=== PATIENT | female | born 1980 | race Caucasian/White ===

== ENCOUNTER → 2016-12-07 | Outpatient (CLI) | payer BC ==
[~2016-12-07] MED LIST: CYNI1000 INJ; OXYC-57 PO; PRENTAB26 PO
== END | disposition home or self-care (01) ==
LOC: C.LAB1850 10:31
PROVIDERS: ATTEND Obstetrics & Gynecology Reproductive Endocrinology
DX: O09.00 Supervision of pregnancy with history of infertility, unspecified trimester (principal)

== ENCOUNTER → 2016-12-12 | Outpatient (CLI) | payer BC | END | disposition home or self-care (01) | LOC: C.LAB 07:54 | PROVIDERS: ATTEND Specialist | DX: Z31.41 Encounter for fertility testing (principal) ==

== ENCOUNTER → 2017-01-27 | Outpatient (CLI) | payer BC | END | disposition home or self-care (01) | LOC: C.LAB1850 07:02 | PROVIDERS: ATTEND Obstetrics & Gynecology Reproductive Endocrinology | DX: O09.00 Supervision of pregnancy with history of infertility, unspecified trimester (principal) ==

== ENCOUNTER → 2017-01-29 | Outpatient (CLI) | payer BC | END | disposition home or self-care (01) | LOC: C.LAB1850 08:47 | PROVIDERS: ATTEND Obstetrics & Gynecology Reproductive Endocrinology | DX: O09.00 Supervision of pregnancy with history of infertility, unspecified trimester (principal) ==

== ENCOUNTER → 2017-02-01 | Outpatient (CLI) | payer BC | END | disposition home or self-care (01) | LOC: C.LAB1850 09:18 | PROVIDERS: ATTEND Obstetrics & Gynecology Reproductive Endocrinology | DX: O09.00 Supervision of pregnancy with history of infertility, unspecified trimester (principal); Z3A.00 Weeks of gestation of pregnancy not specified ==

== ENCOUNTER → 2017-02-24 | Outpatient (CLI) | payer BC | END | disposition home or self-care (01) | LOC: C.LAB1850 08:52 | PROVIDERS: ATTEND Obstetrics & Gynecology | DX: O02.1 Missed abortion (principal) ==

== ENCOUNTER → 2017-03-08 | Outpatient (CLI) | payer BC | END | disposition home or self-care (01) | LOC: C.LAB1850 09:13 | PROVIDERS: ATTEND Obstetrics & Gynecology Reproductive Endocrinology | DX: Z31.41 Encounter for fertility testing (principal) ==

== ENCOUNTER → 2017-03-15 | Outpatient (CLI) | payer BC | END | disposition home or self-care (01) | LOC: C.LAB 07:10 | PROVIDERS: ATTEND Obstetrics & Gynecology Reproductive Endocrinology | DX: Z31.41 Encounter for fertility testing (principal) ==

== ENCOUNTER → 2017-04-02 | Outpatient (CLI) | payer BC | END | disposition home or self-care (01) | LOC: C.LAB1850 09:15 | PROVIDERS: ATTEND Obstetrics & Gynecology Reproductive Endocrinology | DX: Z11.3 Encounter for screening for infections with a predominantly sexual mode of transmission (principal); Z11.4 Encounter for screening for human immunodeficiency virus [HIV]; Z11.59 Encounter for screening for other viral diseases; O09.00 Supervision of pregnancy with history of infertility, unspecified trimester; Z3A.00 Weeks of gestation of pregnancy not specified ==

== ENCOUNTER → 2017-04-09 | Outpatient (CLI) | payer BC | END | disposition home or self-care (01) | LOC: C.LAB1850 08:59 | PROVIDERS: ATTEND Obstetrics & Gynecology Reproductive Endocrinology | DX: Z31.41 Encounter for fertility testing (principal) ==

== ENCOUNTER → 2017-04-27 | Outpatient (CLI) | payer BC | END | disposition home or self-care (01) | LOC: C.LAB1850 09:03 | PROVIDERS: ATTEND Obstetrics & Gynecology Reproductive Endocrinology | DX: O09.00 Supervision of pregnancy with history of infertility, unspecified trimester (principal) ==

== ENCOUNTER → 2017-06-03 | Outpatient (CLI) | payer OTHER | END | disposition home or self-care (01) | LOC: C.LAB1850 08:47 | PROVIDERS: ATTEND Obstetrics & Gynecology Reproductive Endocrinology | DX: O09.00 Supervision of pregnancy with history of infertility, unspecified trimester (principal) ==

== ENCOUNTER → 2017-06-28 | Outpatient (CLI) | payer OTHER | END | disposition home or self-care (01) | LOC: C.LAB1850 08:36 | PROVIDERS: ATTEND Obstetrics & Gynecology Reproductive Endocrinology | DX: O09.00 Supervision of pregnancy with history of infertility, unspecified trimester (principal) ==

== ENCOUNTER → 2017-07-02 | Outpatient (CLI) | payer OTHER ==
[2017-07-02 10:50] LABS: HEMATOCRIT 40.5 % (37-47); HEMOGLOBIN 14.3 g/dL (12.0-16.0); MEAN CELL VOLUME 88.8 fL (80-100); MEAN CORPUSCULAR HEMOGLOBIN 31.4 pg (25-34); PLATELET COUNT 138 K/uL (130-400); RED CELL DISTRIBUTION WIDTH CV 12.8 % (11.5-14.5); RED CELL DISTRIBUTION WIDTH SD 41.1 fL (36.4-46.3); WHITE BLOOD COUNT 3.99 K/uL (4.8-10.8)
[2017-07-02 10:53] LABS: MEAN CORPUSCULAR HGB CONC 35.3 g/dl (32-36)
[2017-07-02 11:17] LABS: LUTEINIZING HORMONE 7.41 IU/L
[2017-07-02 11:18] LABS: FOLLICLE STIMULAT HORMONE 16.17 IU/L
== END | disposition home or self-care (01) ==
LOC: C.LAB1850 10:16
PROVIDERS: ATTEND Obstetrics & Gynecology Reproductive Endocrinology
DX: Z31.41 Encounter for fertility testing (principal); Z13.0 Encounter for screening for diseases of the blood and blood-forming organs and certain disorders involving the immune mechanism

== ENCOUNTER → 2017-12-23 | Outpatient (CLI) | payer OTHER | END | disposition home or self-care (01) | LOC: C.LAB1850 10:23 | PROVIDERS: ATTEND Obstetrics & Gynecology Reproductive Endocrinology | DX: Z31.41 Encounter for fertility testing (principal) ==

== ENCOUNTER 2018-12-07 07:38 | Inpatient (IN) ==
--- NOTE | 2018-12-07 08:10 | History & Physical Report ---
Date of Service December 07, 2018 Assessment & Plan (1) Supervision of normal IUP (intrauterine ) in multigravida: (2) Encounter for induction of labor: Monitoring vitals, FHT and and labor status No ROM yet Started on pitocin drip to accelerate contractions and ripen cervix Present on Admission?: Yes History of Present Illness Primary Care Provider: . Dating parameters 40w 5d per LMP confirmed on 02/25/2018. Induction today for postdates. No Complications with this . Has been attending OB appointments. Is currently taking a vitamin with iron and zyrtec for allergies. Experiencing contractions. Experiencing Movement. No Fluid loss or Vaginal blood loss since wednesday when pt thought she had a bloody show. Labs - Blood type: A- - Antibody screen: positive for Anti-D dig - H.4 - Hct:36.2 - Wbc:10.15 - Plt: 135 - Rubella:immune - VDRL/RPR: nonreactive - Gonorrhea :neg - Chlamydia: neg - HIV: neg - HbSAg: neg - GBS:neg - Glucose tolerance x 2: neg x2 Allergies Allergy/AdvReac Type Severity Reaction Status Date / Time No Known Drug Allergies Allergy Verified 12/06/18 14:16 Home Medications Home Medications Medication Instructions Recorded Confirmed Type 1 tab PO DAILY 11/28/18 12/07/18 History vitamin,calcium,rxpyphrr-nzah-xayby acid tablet cetirizine [Zyrtec] 10 mg PO DAILY 12/02/18 12/07/18 History Patient History Medical History Anemia pernicious anemia H/O blood coagulation disorder Factor II clotting disorder Habitual aborter Surgical History History of oral surgery S/P LASIK surgery S/P dilatation and curettage D&E x3 Family History Grandfather (Paternal) Cancer Social History Preferred Language: Hebrew Communication Ability: Effective 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 Beliefs That Will Affect Care: None marital status: Current Living Situation: Spouse Other Information That Helps Us Care for You: No Feels Safe at Home: Yes Safety Concerns: Feels Safe At This Time Smoking Status: Never smoker Do You Dip or Chew Tobacco: No ; Hx Alcohol Use: No Hx Substance Use: No Review of Systems no fever, no chills and no fatigue no cough, no dyspnea and no wheezing + edema; no chest pain and no calf pain + cramping; no abdominal pain, no nausea, no vomiting, no constipation and no diarrhea/loose stools no dysuria and no difficulty urinating + back pain Physical Exam Constitutional: well developed and well nourished Respiratory: normal respiratory effort; no respiratory distress, no labored breathing and no cough Auscultation: no diminished lung sounds, no crackles, no rales, no rhonchi and no wheezes Cardiovascular: Rate/Rhythm: regular rate and regular rhythm Extremities: normal capillary refill, + pedal edema and + edema (2+ pitting edema BL to knees); no calf tenderness Gastrointestinal (Abdomen): Inspection/Auscultation: + abdomen distended and normal bowel sounds Percussion/Palpation: abdomen nontender and no guarding Genitourinary: Speculum/Bimanual Exam: + uterus enlarged OB Exam Abdomen: + fundal height Fundus: + firm and + relation to umbilicus (high above umbilicus); not tender Results & Data Vital Signs (Past 12 Hours) Vital Signs Pulse BP 12/07/18 07:55 81 125/70 Monitoring External Monitor Heart Monitor: Moderate Variability Accelerations No Decels Basleine HR 150 Tocodynamometer Contraction Frequency: sporadic, not in synchronous rhythm at this time Supervising Physician Co-Signing Physician Notes Resident Physician Supervision Note: I was present with Dr. [place] during the history and exam. I discussed the case with the resident and agree with the findings and plan as documented in the note. Any exceptions or clarifications are listed here: [None] Documented By: Padmini Franco MD, FACOG
[2018-12-07] MEDS ORDERED: OXYTOCIN 30 UNITS/500 ML BAG IV PRN ×2 (08:11)
[2018-12-07 08:36] LABS: Hematocrit (blood only) 36.2 % (37-47); Hemoglobin 12.4 g/dL (12.0-16.0); Mean Corpuscular Volume 91.6 fL (80-100); Mean Platelet Volume 10.8 fL (7.4-10.4); Platelet Count 135 K/uL (130-400); RDW Coefficient of Variation 13.8 % (11.5-14.5); RDW Standard Deviation 45.4 fL (36.4-46.3); Red Blood Count 3.95 M/uL (4.2-5.4); White Blood Count 10.15 K/uL (4.8-10.8)
[2018-12-07 08:58] LABS: Mean Corpuscular Hgb Conc 34.3 g/dL (32-36)
[2018-12-07] MEDS: LACTATED RINGER'S 1,000 ML IV PRN ×4 (10:17→23:18)
[2018-12-07] MEDS ORDERED: BUPIVACAINE 0.25% 30 ML VIAL ONE (15:40)
[2018-12-07] MEDS ORDERED: ePHEDrine sulfate 50 MG/ML AMP ONE (15:41)
[2018-12-07] MEDS ORDERED: fentaNYL citrate 100 MCG/2 ML VIAL ONE (15:41)
[2018-12-07] MEDS ORDERED: fentaNYL 2MCG/ML ROPIV 1.25MG/ML 100 ML BAG EPI ONE (15:42)
--- NOTE | 2018-12-07 16:43 | Anesthesiology Consultation ---
Date of Service December 07, 2018 Assessment & Plan Chart Review Chart Review: Acceptable Risk for Labor Epidural Consults Requested none History Height/Weight Height: 5 ft 9 in Weight: 92.533 kg Allergies Allergy/AdvReac Type Severity Reaction Status Date / Time No Known Drug Allergies Allergy Verified 12/06/18 14:16 Medications Home Medications Medication Instructions Recorded Confirmed Last Taken 1 tab PO DAILY 11/28/18 12/07/18 12/06/18 19:00 vitamin,calcium,wnczvpti-uvgw-wherg acid tablet cetirizine [Zyrtec] 10 mg PO DAILY 12/02/18 12/07/18 12/06/18 09:00 Active Medications Generic Name Dose Route Start Last Admin Trade Name Freq PRN Reason Stop Dose Admin Lactated Ringer's 1,000 mls @ 125 mls/hr 12/07/18 08:11 12/07/18 14:41 Lr IV 12/09/18 08:10 999 mls/hr .Q8H PRN Infusion L&D Protocol Protocol Oxytocin 30 units in 500 mls @ 5 mls/hr 12/07/18 08:11 12/07/18 12:20 Pitocin IV 12/09/18 08:10 0.3 units/hr .Q24H PRN 5 mls/hr Labor Induction/Augmentation Titration Protocol 0.3 UNITS/HR Past Medical History Medical History Anemia pernicious anemia H/O blood coagulation disorder Factor II clotting disorder Habitual aborter Past Family History Family History Grandfather (Paternal) Cancer Past Surgical History Surgical History History of oral surgery S/P LASIK surgery S/P dilatation and curettage D&E x3 Social History Smoking Status: Never smoker Do You Dip or Chew Tobacco: No Hx Alcohol Use: No Hx Substance Use: No Physical Exam Vital Signs Last Vital Signs Temp 36.9 C 12/07/18 14:10 Pulse 83 12/07/18 16:38 Resp 20 12/07/18 14:10 BP 136/60 12/07/18 16:38 Pulse Ox 96 12/07/18 16:38 Testing Laboratory Results 12/07/18 08:19
[2018-12-07] MEDS ORDERED: ePHEDrine sulfate 50 MG/ML AMP IV PRN (16:46)
[2018-12-07] MEDS ORDERED: NALOXONE HCL 1 MG in SODIUM CHLORIDE 0.9% 1000ML 1,000 ML IV PRN (16:46)
[2018-12-07] MEDS ORDERED: NALOXONE HCL 0.4 MG/1 ML VIAL/CARP IV PRN (16:46)
[2018-12-07] MEDS ORDERED: DiphenhydrAMINE HCL 50 MG/ML VIAL IV PRN (16:46)
[2018-12-07] MEDS ORDERED: NALBUPHINE HCL INJ 10 MG/ML AMP IV PRN (16:46)
[2018-12-07] MEDS ORDERED: Nursing to Pharmacy Communication ONE (22:35)
[2018-12-07] MEDS: fentaNYL 2MCG/ML ROPIV 1.25MG/ML 100 ML BAG EPI PRN (23:19)
[2018-12-08] MEDS: fentaNYL 2MCG/ML ROPIV 1.25MG/ML 100 ML BAG EPI PRN (05:38)
[2018-12-08] MEDS: LACTATED RINGER'S 1,000 ML IV PRN (06:17)
[2018-12-08] MEDS ORDERED: BISACODYL 10 MG SUPP PR PRN (08:14)
[2018-12-08] MEDS ORDERED: HYDROCORTISONE ACETATE 25 MG SUPP PR PRN (08:14)
[2018-12-08] MEDS ORDERED: SUPERCREAM 0.870% 15 GM JAR EXT PRN (08:14)
[2018-12-08] MEDS ORDERED: ACETAMINOPHEN 325 MG TAB PO PRN (08:14)
[2018-12-08] MEDS ORDERED: OXYCODONE/ACETAMINOPHEN 5mg/325mg TAB PO PRN (08:14)
[2018-12-08] MEDS ORDERED: BENZOCAINE 20% AER SPR 82.5 GM CAN EXT PRN (08:14)
[2018-12-08] MEDS ORDERED: OXYTOCIN 30 UNITS/500 ML BAG IV PRN (08:14)
--- NOTE | 2018-12-08 09:36 | Anesthesia Procedure Note ---
Date of Service December 08, 2018 Anesthesia Post Epidural Note Vital Signs Vital Signs: Temp Pulse Resp BP Pulse Ox 36.8 C 90 18 119/59 L 97 12/08/18 06:00 12/08/18 09:30 12/08/18 06:00 12/08/18 09:30 12/08/18 07:43 Pain Intensity Bilateral Abdomen: Pain Intensity: 4 Notes Mental Status: alert / awake / arousable Patient Amnestic to Procedure: No Nausea / Vomiting: adequately controlled Pain: adequately controlled Airway Patency, RR, SpO2: stable & adequate BP & HR: stable & adequate Hydration State: stable & adequate Neuraxial Anesthesia: was administered and sensory block is resolving Anesthetic Complications: no major complications apparent and Pt Satisfied with anesthetic care Epidural: Removed without complications and With tip intact
[2018-12-08] MEDS: IBUPROFEN 600 MG TAB PO PRN ×3 (10:35→19:37)
--- NOTE | 2018-12-08 15:08 | Delivery Summary ---
DATE OF OPERATION: 12/08/2018 The patient is a 38-year-old G1, P0 white female who presented for induction because of post-term . She had a Sanders bulb placed in her cervix and Pitocin was begun. She progressed to full dilation with effective epidural analgesia and delivered a viable female over a small median episiotomy. Mouth and nasopharynx were suctioned on the field. The rest of the infant delivered easily, was placed on the mother's abdomen for further attention and drying. The cord was clamped and cut after 30 seconds. Placenta was then expressed intact with a 3-vessel cord. A second degree perineal laceration was repaired with 3-0 chromic in the usual fashion. Estimated blood loss was 300 mL. bleeding was controlled with dilute Pitocin. I attest to the content of the Intraoperative Record and any orders documented therein. Any exception s are noted below.
[2018-12-08] MEDS: DOCUSATE SODIUM 100 MG CAP PO SCH (19:37)
[2018-12-09] MEDS: IBUPROFEN 600 MG TAB PO PRN ×5 (01:10→20:39)
[2018-12-09 07:53] LABS: Hematocrit (blood only) 31.1 % (37-47); Hemoglobin 10.5 g/dL (12.0-16.0); Mean Corpuscular Hgb Conc 33.8 g/dL (32-36); Mean Corpuscular Volume 92.3 fL (80-100); Mean Platelet Volume 10.6 fL (7.4-10.4); Platelet Count 146 K/uL (130-400); RDW Coefficient of Variation 14.3 % (11.5-14.5); Red Blood Count 3.37 M/uL (4.2-5.4); White Blood Count 14.42 K/uL (4.8-10.8)
[2018-12-09] MEDS: PRENATAL VITAMIN 1 TAB PO SCH (07:54)
[2018-12-09] MEDS: DOCUSATE SODIUM 100 MG CAP PO SCH ×2 (07:55→20:39)
--- NOTE | 2018-12-09 07:55 | Obstetrical Progress Note ---
Date of Service December 09, 2018 Assessment & Plan (1) Vaginal delivery: Doing well. Routinen care. Day #:: 1 Subjective Ambulation: ambulating normally Voiding: no voiding problems Passing Gas:: Yes Diet Tolerance:: regular diet Lochia:: Small Feeding Type:: breast feeding Physical Exam Constitutional WD/WN, vitals as above Cardiovascular Extremities: + edema (trace); no calf tenderness Gastrointestinal (Abdomen) Inspection/Auscultation: abdomen not distended Percussion/Palpation: abdomen soft; abdomen nontender ff/nt at u Psychiatric A+Ox3, euthymic affect Results & Data Vital Signs (Past 12 Hours) Vital Signs Temp Pulse Resp BP Pulse Ox 12/09/18 03:25 36.6 C 79 16 101/62 97 12/08/18 23:15 36.6 C 81 16 109/69 98
[2018-12-09] MEDS ORDERED: DIPHTHERIA/TETANUS/PERTUSSIS 0.5 ML SYR/VIAL IM ONE (09:00)
[2018-12-09] MEDS ORDERED: BISACODYL 5 MG TABEC PO SCH (20:00)
[2018-12-10] MEDS: IBUPROFEN 600 MG TAB PO PRN ×2 (00:55→07:42)
[2018-12-10 07:37] LABS: Hematocrit (blood only) 31.7 % (37-47); Hemoglobin 10.7 g/dL (12.0-16.0)
[2018-12-10] MEDS: PRENATAL VITAMIN 1 TAB PO SCH (07:42)
[2018-12-10] MEDS: DOCUSATE SODIUM 100 MG CAP PO SCH (07:42)
--- NOTE | 2018-12-10 09:04 | Obstetrical Progress Note ---
Date of Service December 10, 2018 Assessment & Plan (1) Vaginal delivery: doing well, ready for d/c home. instructions reviewed. f/u 6 wk pp check. 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 she seems to have low risk condition with no high risk factors. offered lovenox for 2wks vs. nothing(based on her past heme consult and current literature) she opts to not use lovenox. enc to move more (3) Pain in the coccyx: enc to move more. motrin and warm heat and time. may need to see PT or ortho if persists by pp visit. Day #:: 2 Subjective Ambulation: ambulating normally Voiding: no voiding problems Diet Tolerance:: regular diet Lochia:: Small Feeding Type:: breast feeding doing well, denies h/o vte or leg pain or any issues. she has been told in past that she does not need lovenox due to her h/o heterozygous prothrombin gene mutation, she is having tailbone pain and was trying to move more with the walker, has pedal edema Physical Exam Constitutional WD/WN, vitals as above Respiratory normal respiratory effort, lungs clear to auscultation Cardiovascular Rate/Rhythm: regular rate and regular rhythm Gastrointestinal (Abdomen) Inspection/Auscultation: abdomen normal to inspection Percussion/Palpation: abdomen soft fundus firm 1 cm below umbilicus Musculoskeletal nt calves, +2 pedal edema Neurologic grossly normal Psychiatric A+Ox3, euthymic affect Results & Data Vital Signs (Past 12 Hours) Vital Signs Temp Pulse Resp BP 12/10/18 00:10 98.1 F 76 18 108/69
== END 2018-12-10 11:30 | disposition home or self-care (01) | DRG 806 ==
LOC: 4S1 07:38 → 4N 12-08 11:30

== ENCOUNTER 2020-11-13 23:08 | Inpatient (IN) ==
[2020-11-14] MEDS ORDERED: OXYTOCIN 30 UNITS/500 ML BAG IV PRN (00:31)
[2020-11-14] MEDS ORDERED: LACTATED RINGER'S 1,000 ML IV PRN (00:31)
--- NOTE | 2020-11-14 00:33 | Labor Progress Brief Note ---
Date of Service November 14, 2020 Subjective 40yo @ 38w 6d with SROM at home earlier this evening, followed by onset of contractions. Patient was initially un-convinced her water had broken, and elected to stay at home after discussing on the phone with o/c provider at 1845pm, due to a pad test being negative. However by 8pm contractions were starting to fruit picker, and by 2245pm the patient called back to c/o ctx becoming painful and 4-6min apart. She was then advised to come in and be checked. On arrival per RN she was a tight 2cm dilated, thick, posterior, and ROM was uncertain. I asked an AmniSure to be done, which came up positive. At that point we decided to admit the patient and I came out to examine her myself and confirm position as well as cervical dilation. At that point, despite only a short time having passed, patient had already become significantly more painful and she was already 5cm/90/-1 station. Fetus definitely in vertex presentation. Patient undecided at this time whether she wishes an epidural or NCB. Review of Systems All systems reviewed & are unremarkable except as noted in HPI & below Assessment & Plan (1) Elderly multigravida: (2) Normal labor and delivery: (3) Need for rhogam due to Rh negative mother: Physical Exam Constitutional: WD/WN, vitals as above + in distress Eyes: PERRL, conjunctivae normal, anicteric sclerae ENMT: external ear and nose normal, oropharynx normal Neck: supple Respiratory: normal respiratory effort and able to speak in complete sentences; no respiratory distress Cardiovascular: Rate/Rhythm: regular rate and regular rhythm Extremities: + pedal edema Gastrointestinal (Abdomen): Gravid / AGA, nontender Musculoskeletal: no cyanosis or clubbing, extremities motor strength 5/5 Skin: no rashes, warm and dry Neurologic: patellar DTR's 2+ bilat, sensation intact Psychiatric: A+Ox3, euthymic affect Genitourinary: Speculum/Bimanual Exam: no vaginal lesions, no vaginal bleeding and uterus nontender OB Exam Abdomen: + vertex, + estimated weight (7) and + regular contractions (Q3) Manual OB Exam: + cervical dilation 5 cm, + cervical effacement 90%, + station -1 and + amniotic fluid clear OB Exam Monitor Tracing: + external FHT monitor used, + external uterine monitor used and + category I Lymphatic: no cervical or axillary lymphadenopathy Results & Data ([facility]) Vital Signs (Past 12 Hours) Vital Signs Temp Pulse Resp BP 11/13/20 23:29 90 107/61 11/13/20 23:25 97.7 F 90 16 107/61 Coding Level of Care Code None Diagnoses Elderly multigravida O09.529 Normal labor and delivery O80 Need for rhogam due to Rh negative mother Z29.13
[2020-11-14 00:45] LABS: Hematocrit (blood only) 37.9 % (37-47); Hemoglobin 13.1 g/dL (12.0-16.0); Mean Corpuscular Hemoglobin 31.8 pg (25-34); Platelet Count 132 K/uL (130-400); RDW Coefficient of Variation 14.2 % (11.5-14.5); RDW Standard Deviation 47.4 fL (36.4-46.3); Red Blood Count 4.12 M/uL (4.2-5.4); White Blood Count 10.45 K/uL (4.8-10.8)
[2020-11-14 01:20] LABS: Mean Corpuscular Hgb Conc 34.6 g/dL (32-36)
[2020-11-14] MEDS ORDERED: ePHEDrine sulfate 50 MG/ML AMP ONE (01:45)
[2020-11-14] MEDS ORDERED: BUPIVACAINE 0.25% 30 ML VIAL ONE (01:45)
[2020-11-14] MEDS ORDERED: fentaNYL citrate 100 MCG/2 ML VIAL ONE (01:45)
[2020-11-14] MEDS ORDERED: SODIUM CHLORIDE 0.9% INJ 10 ML VIAL ONE (01:45)
[2020-11-14] MEDS ORDERED: fentaNYL 2MCG/ML ROPIVACAINE 1.25MG/ML 100 ML BAG EPI ONE (01:46)
--- NOTE | 2020-11-14 02:35 | Anesthesiology Consultation ---
Date of Service November 14, 2020 Assessment & Plan (1) Encounter for pre-operative examination: Chart Review Chart Review: Acceptable Risk for Surgery and Patient seen in Pre Admission Testing Consults Requested none ASA ASA2 Proposed Anesthesia Anesthesia Type: Labor Epidural Risk / Benefits Reviewed With: PT / POA / Parent / Guardian, Accepts Plan and Informed Consent Obtained History Height/Weight Height: 5 ft 9 in Weight: 95.254 kg Allergies Allergy/AdvReac Type Severity Reaction Status Date / Time No Known Allergies Allergy Verified 11/12/20 12:52 Medications Home Medications Medication Instructions Recorded Confirmed Last Taken vit no.95-ferrous 1 tab PO HS 11/28/19 11/13/20 11/13/20 fumarate 28 mg-folic acid 800 mcg tablet () Active Medications Generic Name Dose Route Start Last Admin Trade Name Freq PRN Reason Stop Dose Admin Lactated Ringer's 1,000 mls @ 125 mls/hr 11/14/20 00:31 11/14/20 01:38 Lr IV 11/16/20 00:30 999 mls/hr .Q8H PRN Administration L&D Protocol Protocol NPO Date Last Intake of Fluids: 11/14/20 Time Last Intake of Fluids: 02:31 Date Last Intake of Solids: 11/13/20 Time Last Intake of Solids: 18:00 Past Medical History Medical History (Updated 11/14/20 @ 00:39 by Malina Malagon MD) Encounter for pre-operative examination H/O blood coagulation disorder Factor II clotting disorder; 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 Migraine hx Miscarriage Need for rhogam due to Rh negative mother 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 Prothrombin deficiency Supervision of elderly multigravida Thickened endometrium Exercise / Class Metabolic Activity II 4-5 Yardwork/Stairs/Walk up hill Negative for chest pain or shortness of breath. Past Family History Family History Grandfather (Paternal) Cancer Past Surgical History Surgical History History of epidural anesthesia Labor epidural: 12/07/18: attempts x1 at L3-L4 History of oral surgery WISDOM TEETH S/P dilatation and curettage D&E x3 S/P LASIK surgery Past Anesthesia History No Hx of Anesthesia Complications History of PONV No Hx of PONV Social History Smoking Status: Never smoker Hx Alcohol Use: Yes Alcohol type: beer alcohol intake frequency: a few times a month Hx Substance Use: No Review of Systems Patient denies history of abnormal bleeding. Patient denies active use of anticoagulants other than low dose aspirin. Pt reports that her "bleeding disorder" was discovered on a genetic test and has never had any symptoms of bleeding abnormalities. Patient denies numbness, tingling or weakness in lower extremities. Physical Exam Vital Signs Last Vital Signs Temp 36.7 C 11/14/20 01:35 Pulse 90 11/13/20 23:29 Resp 18 11/14/20 01:35 BP 107/61 11/13/20 23:29 Constitutional not obese (gravid) ENMT Mouth: no TMJ abnormality and oral opening not small Thyromental Distance: > or= 3.5 Finger Breadths Mallampati Class: II Neck normal visual inspection; neck extension not limited Respiratory normal respiratory effort Cardiovascular Rate/Rhythm: regular rate and regular rhythm Neurologic moves all extremities Psychiatric Orientation: alert and oriented x 3 Testing Laboratory Results 11/14/20 00:36
[2020-11-14] MEDS ORDERED: ePHEDrine sulfate 50 MG/ML AMP IV PRN (02:36)
[2020-11-14] MEDS ORDERED: ONDANSETRON INJ 2 MG/ML 2 ML VIAL IV PRN (02:36)
[2020-11-14] MEDS ORDERED: NALOXONE HCL 0.4 MG/1 ML VIAL/CARP IV PRN (02:36)
[2020-11-14] MEDS ORDERED: NALBUPHINE HCL INJ 10 MG/ML AMP IV PRN (02:36)
[2020-11-14] MEDS ORDERED: fentaNYL 2MCG/ML ROPIVACAINE 1.25MG/ML 100 ML BAG EPI PRN (02:36)
[2020-11-14] MEDS ORDERED: NALOXONE HCL 1 MG in SODIUM CHLORIDE 0.9% 1000ML 1,000 ML IV PRN (02:36)
[2020-11-14] MEDS ORDERED: diphenhydrAMINE 50 MG/ML VIAL IV PRN (02:36)
--- NOTE | 2020-11-14 05:53 | Delivery Summary ---
Vaginal Delivery Summary Date of Service November 14, 2020 Vaginal Delivery Summary and 1st Degree LAC DIAGNOSES: 1. Garay intrauterine at 38w6d gestation. 2. Spontaneous onset of labor. 3. Group B Streptococcus Neg. PROCEDURE: Spontaneous vaginal delivery and repair of 1st degree perineal laceration. SURGEON: Malina Malagon MD. MANAGER IN TRAINING: None. ESTIMATED BLOOD LOSS: 300 mL. COMPLICATIONS: None. PLACENTA: Spontaneous and intact with a 3-vessel cord. DISPOSITION: Stable to labor and delivery. DESCRIPTION: The patient pushed well and brought the head to in DOA position. The infant's head was allowed to deliver with contraction force and no further active pushing, with the perineum protected during this time. There was no nuchal cord. The left shoulder was anterior. The shoulders and body delivered without any difficulty, and the was placed on the maternal abdomen. It was vigorous and moving all extremities, and making respiratory efforts. The cord was doubly clamped by the MD and then cut by the FOB. The placenta delivered spontaneously and was noted to be intact and with a 3VC. The cervix, vagina and perineum were examined and were found to have a first degree / shallow laceration extending about mcc from the posterior vaginal verge to the anus; this was repaired in running locked fashion with 3-0 vicryl, and did not disturb the muscle therefore did not require a crown suture. The fundus was firm and lochia minimal immediately after delivery. [facility] Vaginal Delivery Charge Vaginal Delivery Codes: 80965 global code for the antepartum, delivery, and post- Delivery Type Details: and 1st Degree LAC
[2020-11-14] MEDS ORDERED: SUPERCREAM 0.870% 15 GM JAR EXT PRN (08:01)
[2020-11-14] MEDS ORDERED: ACETAMINOPHEN 325 MG TAB PO PRN (08:01)
[2020-11-14] MEDS ORDERED: DIPHTHERIA/TETANUS/PERTUSSIS 0.5 ML SYR/VIAL IM ONE (08:01)
[2020-11-14] MEDS ORDERED: HYDROCORTISONE ACETATE 25 MG SUPP PR PRN (08:01)
[2020-11-14] MEDS ORDERED: oxyCODONE/ACETAMINOPHEN 5mg/325mg TAB PO PRN (08:01)
[2020-11-14] MEDS ORDERED: BENZOCAINE 20% AER SPR 82.5 GM CAN EXT PRN (08:01)
--- NOTE | 2020-11-14 08:39 | Anesthesia Procedure Note ---
Date of Service November 14, 2020 Anesthesia Post Epidural Note Vital Signs Vital Signs: Temp Pulse Resp BP Pulse Ox 36.8 C 82 16 128/55 L 97 11/14/20 05:00 11/14/20 08:31 11/14/20 06:45 11/14/20 08:31 11/14/20 05:54 Notes Mental Status: alert / awake / arousable and participated in evaluation Patient Amnestic to Procedure: Yes Nausea / Vomiting: adequately controlled Pain: adequately controlled Airway Patency, RR, SpO2: stable & adequate BP & HR: stable & adequate Hydration State: stable & adequate Anesthetic Complications: no major complications apparent and Pt Satisfied with anesthetic care Epidural: Removed without complications and With tip intact
[2020-11-14] MEDS: IBUPROFEN 600 MG TAB PO PRN ×3 (10:36→21:01)
[2020-11-14] MEDS: PRENATAL VITAMIN 1 TAB PO SCH (10:36)
[2020-11-14] MEDS: DOCUSATE SODIUM 100 MG CAP PO SCH ×2 (10:36→21:00)
[2020-11-14] MEDS ORDERED: NON-FORMULARY MEDICATION (Pnv Cmb#95-Ferrous Fumarate-Fa [Prenatal] 28 mg iron- 800 mcg Ta PO SCH (21:00)
[2020-11-15] MEDS: IBUPROFEN 600 MG TAB PO PRN ×3 (02:40→13:22)
--- NOTE | 2020-11-15 06:54 | Obstetrical Progress Note ---
Date of Service <Terri Almodovar MD - Last Filed: 11/15/20 07:28> November 15, 2020 Assessment & Plan <Terri Almodovar MD - Last Filed: 11/15/20 07:28> (1) Normal labor and delivery: (2) Need for rhogam due to Rh negative mother: (3) Elderly multigravida: (4) Encounter for care and examination after delivery: Stable, routine care -pn control as needed -encourage ambulation -monitor vitals -Rh-, GBS-, RI: give rhogam -pm d/c <Cecilia Rodriguez MD, FACOG - Last Filed: 11/15/20 07:31> (1) Normal labor and delivery: (2) Need for rhogam due to Rh negative mother: (3) Elderly multigravida: (4) Encounter for care and examination after delivery: Subjective <Terri Almodovar MD - Last Filed: 11/15/20 07:28> 40 y/o female who is now PPD #1 following spontaneous vaginal delivery at 38.4 weeks. Reports feeling well overall this morning. +abdominal cramping with feeding & 3/10 pain well managed on analgesics. Voiding +. Tolerating meals well and able to ambulate some. + passing gas but no bowel movements. Minimal lochia with some improvement this morning. . Review of Systems Denies fever, chills, sweats Denies shortness of breath, difficulty breathing, chest pain, palpitations, chest pressure. Denies breast pain. Denies dysuria. Denies headache or changes in vision Review of Systems All systems reviewed & are unremarkable except as noted in HPI & below Physical Exam <Terri Almodovar MD - Last Filed: 11/15/20 07:28> General: Alert, oriented. No acute distress. Cardiac: Regular rate and rhythm, no murmurs/rubs/gallops. Respiratory: Clear to auscultation bilaterally a/p, no wheezes/rales/rhonchi. No increased work of breathing. Symmetrical chest rise. No respiratory distress. Abdomen: Soft, nontender, nondistended. Bowel sounds present. Uterus: Uterine fundus firm, palpable 4 cm below umbilicus. Lower Extremities: No lower extremity edema or swelling. No deep calf pain. Morena's negative bilaterally.. Constitutional WD/WN, vitals as above Results & Data ([facility]) <Terri Almodovar MD - Last Filed: 11/15/20 07:28> Vital Signs (Past 12 Hours) Vital Signs Temp Pulse Resp BP Pulse Ox 11/15/20 03:45 36.4 C L 77 18 100/58 L 97 11/14/20 23:55 36.7 C 72 16 102/61 98 11/14/20 20:15 36.8 C 82 20 118/70 98 <Cecilia Rodriguez MD, FACOG - Last Filed: 11/15/20 07:31> Co-Signing Physician Notes Resident Physician Supervision Note: I interviewed and examined the patient. Discussed with Dr. Almodovar and agree with findings and plan as documented in the note. Any exceptions or clarifications are listed here: Doing well. Plan d/c. Instructions given. Documented By: Cecilia Rodriguez MD, FACOG Resident Activity Tracking <Terri Almodovar MD - Last Filed: 11/15/20 07:28> Resident Involvement: Resident Care Provided Care Provided: OB Delivery
[2020-11-15 08:08] LABS: Hematocrit (blood only) 36.2 % (37-47); Hemoglobin 12.3 g/dL (12.0-16.0); Mean Corpuscular Hemoglobin 32.5 pg (25-34); Mean Corpuscular Volume 95.8 fL (80-100); Mean Platelet Volume 10.2 fL (7.4-10.4); Platelet Count 172 K/uL (130-400); RDW Coefficient of Variation 14.6 % (11.5-14.5); RDW Standard Deviation 50.5 fL (36.4-46.3); Red Blood Count 3.78 M/uL (4.2-5.4); White Blood Count 10.15 K/uL (4.8-10.8)
[2020-11-15] MEDS: PRENATAL VITAMIN 1 TAB PO SCH (08:26)
[2020-11-15] MEDS: DOCUSATE SODIUM 100 MG CAP PO SCH (08:26)
== END 2020-11-15 14:33 | disposition home or self-care (01) | DRG 807 ==
LOC: OPB 23:08 → 4S1 23:10 → 4S2 11-14 09:46

== ENCOUNTER 2022-10-08 02:53 | Inpatient (IN) ==
[2022-10-08] MEDS ORDERED: LIDOCAINE 1% LOCAL 20 ML VIAL INFIL PRN (03:00)
[2022-10-08] MEDS ORDERED: OXYTOCIN 30 UNITS/500 ML BAG IV PRN ×2 (03:00→11:45)
--- NOTE | 2022-10-08 03:03 | History & Physical Report ---
Date of Service October 08, 2022 Assessment & Plan (1) with 39 completed weeks gestation: (2) Supervision of elderly multigravida: (3) Polyhydramnios affecting : Plan admit for labor. desires epidural. then once comfortable, plan arom and anticipate . fetus category one. Admission and Anticipated Discharge Date Admission Date: October 08, 2022 History of Present Illness Chief Complaint: contractions Primary Care Provider: Grace Lockwood MD Patient is a with iup at 39 3/7 who presents to labor and delivery complaining of increasing contractions. Notes no lof/vb. +fm. On for induction today for AMA>40 and need for delivery by edc. Poly diagnosed at her very last ultrasound. DVP 8.4. Week before was 7.9. Reassuring testing. and Delivery Plans AMA>40@del *Anatomy Scan @ 20wks * Echo 22-24wks C- 06/16/22 WNL *Growth scan @32wks *Weekly NST's @36 wks *Twice weekly NST @38wks *Weekly AVERY's @38wks *Deliver by 40 wks IOL 10/08/22 Heterozygous Prothrombin Gene Mutation - no personal or fam hx VTE *MFM consult(06/27/20) Per MFM recs-No increased risk of clot, no anticoagulation Need for Rhogam d/t Rh negative mother - Rhogam given 07/20/22- MK s/p flu shot (mid january) Rhogam given 03/09/22 - [place] [facility] Labs: Blood Type A Negative 11/14/20 Antibody Screen NEGATIVE 07/20/22 Hemoglobin 12.8 g/dl (12.0-16.0) 07/20/22 Hematocrit 36.8 % (37.0-47.0) L 07/20/22 Mean Corpuscular Volume 92.3 fL (80.0-100.0) 03/02/22 Platelet Count 193 Thousand/uL (140-400) 03/02/22 Rubella IgG Antibody 4.53 Index 03/02/22 Rapid Plasma Reagin NON-REACTIVE (NON-REACTIVE) 03/02/22 Hepatitis B Surface Antigen Neg (Neg) 04/15/20 Hepatitis B Surface Antigen. NON-REACTIVE (NON-REACTIVE) 03/02/22 F Hepatitis C Antibody Neg (Neg) 11/13/19 Hepatitis C Antibody (EIA) NON-REACTIVE (NON-REACTIVE) 03/02/22 HIV (1&2) Ab and P24 Ag, 4th Gener NON-REACTIVE (NON-REACTIVE) 03/02/22 Glucose 1 Hour 50 gm Load 107 mg/dl (70-130) 07/20/22 Maternal Serum Alpha Fetoprotein 37.8 ng/mL 05/22/22 OB Optional Labs: Chlamydia trachomatis RNA Not Detected (NotDetected) 03/02/22 Neisseria gonorrhoeae RNA Not Detected (NotDetected) 03/02/22 Thyroid Stimulating Hormone (TSH) 0.980 uIu/ml (0.300-4.500) 11/13/19 Alpha Fetoprotein Triple Screen SEE NOTE 05/22/22 Labs Reviewed: Cf/SMA negative in prior (05/13/18) cfdna-low risk--mln afp neg--akh gbs neg--akh Allergies Allergy/AdvReac Type Severity Reaction Status Date / Time No Known Allergies Allergy Verified 10/07/22 15:26 Home Medications Medication Instructions Recorded Confirmed Type vit no.95-ferrous 1 tab PO HS 11/28/19 10/07/22 History fumarate 28 mg-folic acid 800 mcg tablet () Patient History Medical History Encounter for pre-operative examination H/O blood coagulation disorder Factor II clotting disorder; 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 Migraine hx Miscarriage Need for rhogam due to Rh negative mother 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 Prothrombin deficiency Supervision of elderly multigravida Thickened endometrium Varicella vaccination Surgical History History of epidural anesthesia Labor epidural: 12/07/18: attempts x1 at L3-L4 History of oral surgery WISDOM TEETH S/P dilatation and curettage D&E x3 S/P LASIK surgery Family History Grandfather (Paternal) Cancer Denies family history of Ovarian cancer Breast cancer Colorectal cancer Social History Smoking Status: Never smoker Second Hand Exposure: No; Do You Dip or Chew Tobacco: No; Hx Alcohol Use: Yes Alcohol type: beer Hx Substance Use: No Preferred Language: Danish Communication Ability: Effective Visual Impairment: No Limitations Hoop Puncher Required: No Beliefs That Will Affect Care: None marital status: marital status details: Martínez Anthony (47) [phone] Current Living Situation: Spouse and Family Current Living Situation Comment: lives with spouse, 2 children, and stepdaughter, no pets current occupational status: unemployed 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 Date GA wks Lbr Lgth wt Sex Type del Anes Place Del Prov ? Comment 01/31/14 Aborted-Spontaneous cytotec 10/11/14 Aborted-Spontaneous D&E 02/13/16 Aborted-Spontaneous D&E 02/23/17 Aborted-Spontaneous D&E 12/08/18 40 8lbs 15.3oz F E pidural [facility] Dr. 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
[2022-10-08] MEDS: LACTATED RINGER'S 1,000 ML IV PRN ×2 (03:20→04:35)
[2022-10-08 03:40] LABS: Hematocrit (blood only) 36.6 % (37.0-47.0); Hemoglobin 12.7 g/dl (12.0-16.0); Mean Corpuscular Hemoglobin 31.6 pg (25.0-34.0); Mean Corpuscular Hgb Conc 34.7 g/dL (32.0-36.0); Mean Platelet Volume 10.7 fL (9.4-12.4); Platelet Count 147 K/uL (130-400); RDW Coefficient of Variation 13.9 % (11.5-14.5); RDW Standard Deviation 45.7 fL (36.4-46.3); Red Blood Count 4.02 M/uL (4.20-5.40); White Blood Count 8.16 K/ul (4.8-10.8)
[2022-10-08] MEDS ORDERED: ePHEDrine sulfate 50 MG/ML AMP ONE (03:55)
[2022-10-08] MEDS ORDERED: SODIUM CHLORIDE 0.9% PF INJ 10 ML VIAL ONE (03:56)
[2022-10-08] MEDS ORDERED: LIDOCAINE 2%/EPINEPHRINE 1:200,000 20 ML PF ONE (03:56)
[2022-10-08] MEDS ORDERED: fentaNYL citrate PF 100 MCG/2 ML VIAL ONE (03:56)
[2022-10-08] MEDS ORDERED: fentaNYL 2MCG/ML ROPIVACAINE 1.25MG/ML 100 ML BAG EPI ONE (03:56)
[2022-10-08] MEDS ORDERED: BUPIVACAINE 0.25% PF 30 ML VIAL ONE (03:56)
[2022-10-08] MEDS ORDERED: diphenhydrAMINE 50 MG/ML VIAL IV PRN (04:11)
[2022-10-08] MEDS ORDERED: NALOXONE HCL 0.4 MG/1 ML VIAL/CARP IV PRN (04:11)
[2022-10-08] MEDS ORDERED: LIDOCAINE 2% MPF LOCAL 5 ML VIAL EPI PRN (04:11)
[2022-10-08] MEDS ORDERED: SODIUM CHLORIDE 0.9% PF INJ 10 ML VIAL EPI PRN (04:11)
[2022-10-08] MEDS ORDERED: fentaNYL citrate PF 100 MCG/2 ML VIAL EPI STA (04:11)
[2022-10-08] MEDS ORDERED: BUPIVACAINE 0.25% PF 30 ML VIAL EPI STA (04:11)
[2022-10-08] MEDS ORDERED: fentaNYL 2MCG/ML ROPIVACAINE 1.25MG/ML 100 ML BAG EPI PRN (04:11)
[2022-10-08] MEDS ORDERED: ONDANSETRON INJ 2 MG/ML 2 ML VIAL IV PRN (04:11)
[2022-10-08] MEDS ORDERED: ePHEDrine sulfate 50 MG/ML AMP IV PRN (04:11)
[2022-10-08] MEDS ORDERED: BUPIVACAINE 0.25% PF 30 ML VIAL EPI PRN (04:11)
[2022-10-08] MEDS ORDERED: NALOXONE HCL 1 MG in SODIUM CHLORIDE 0.9% 1000ML 1,000 ML IV PRN (04:11)
[2022-10-08] MEDS ORDERED: ROPIVACAINE 0.5% PF 5 MG/ML 20 ML VIAL EPI PRN (04:11)
[2022-10-08] MEDS ORDERED: fentaNYL citrate PF 100 MCG/2 ML VIAL EPI PRN (04:11)
[2022-10-08] MEDS ORDERED: LIDOCAINE 2%/EPINEPHRINE 1:200,000 20 ML PF EPI STA (04:11)
[2022-10-08] MEDS ORDERED: SODIUM CHLORIDE 0.9% PF INJ 10 ML VIAL EPI STA (04:11)
[2022-10-08] MEDS ORDERED: NALBUPHINE HCL INJ 10 MG/ML AMP IV PRN (04:11)
--- NOTE | 2022-10-08 04:15 | Anesthesiology Consultation ---
Date of Service October 08, 2022 Assessment & Plan Chart Review Chart Review: Patient NOT seen in Pre Admission Testing and Acceptable Risk for Labor Epidural pt stated coag disorder found on genetic exam when doing infertility testing but denies any clinical s/s of bleeding problems. Consults Requested none History Height/Weight Height: 5 ft 9 in Weight: 90.265 kg Allergies Allergy/AdvReac Type Severity Reaction Status Date / Time No Known Allergies Allergy Verified 10/07/22 15:26 Medications Home Medications Medication Instructions Recorded Confirmed Last Taken vit no.95-ferrous 1 tab PO HS 11/28/19 10/08/22 10/07/22 09:00 fumarate 28 mg-folic acid 800 mcg tablet () cetirizine 10 mg tablet (Zyrtec) 10 mg PO DAILY 10/08/22 10/08/22 10/07/22 09:00 Active Medications Generic Name Dose Route Start Last Admin Trade Name Freq PRN Reason Stop Dose Admin Lactated Ringer's 1,000 mls @ 125 mls/hr 10/08/22 03:00 10/08/22 03:20 Lr IV 10/10/22 02:59 999 mls/hr .Q8H PRN Administration L&D Protocol Protocol Past Medical History Medical History Encounter for pre-operative examination H/O blood coagulation disorder Factor II clotting disorder; 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 Exercise / Class Metabolic Activity II 4-5 Yardwork/Stairs/Walk up hill Past Family History Family History Grandfather (Paternal) Cancer Denies family history of Ovarian cancer Breast cancer Colorectal cancer Past Surgical History Surgical History History of epidural anesthesia Labor epidural: 12/07/18: attempts x1 at L3-L4 History of oral surgery WISDOM TEETH S/P dilatation and curettage D&E x3 S/P LASIK surgery Past Anesthesia History No Hx of Anesthesia Complications and No Family Hx of Anesthesia Complications History of PONV No Hx of PONV and No Hx of Motion Sickness Social History Smoking Status: Never smoker Do You Dip or Chew Tobacco: No Hx Alcohol Use: Yes Alcohol type: beer alcohol intake frequency: a few times a month Hx Substance Use: No Physical Exam Vital Signs Last Vital Signs Temp 36.7 C 10/08/22 03:06 Pulse 77 10/08/22 03:02 Resp 18 10/08/22 03:06 BP 124/74 10/08/22 03:02 Testing Laboratory Results 10/08/22 03:26
--- NOTE | 2022-10-08 06:36 | Labor Progress Brief Note ---
Date of Service October 08, 2022 Subjective comfortable Assessment & Plan (1) with 39 completed weeks gestation: (2) Polyhydramnios affecting : (3) Elderly multigravida: Plan fetus category one. s/p arom. anticipate . Admission and Anticipated Discharge Date Admission Date: October 08, 2022 Physical Exam Physical Exam: cx--7/100/-2 toco--q2-4min efm--140s with mod variability, accels to 160s, no decels Results & Data Vital Signs (Past 12 Hours) Vital Signs Temp Pulse Resp BP Pulse Ox 10/08/22 03:06 36.7 C 18 10/08/22 06:33 97 10/08/22 06:33 84 10/08/22 06:28 98 10/08/22 06:28 102 H 10/08/22 06:23 99 10/08/22 06:23 93 H 10/08/22 06:23 104/59 L 10/08/22 06:18 98 10/08/22 06:18 99 H 10/08/22 06:13 98 10/08/22 06:13 71 10/08/22 06:10 90 10/08/22 06:10 81/46 L 10/08/22 06:08 100 10/08/22 06:08 91 H 10/08/22 06:03 100 10/08/22 06:03 71 10/08/22 05:58 100 10/08/22 05:58 84 10/08/22 05:54 78 10/08/22 05:54 107/59 L 10/08/22 05:53 100 10/08/22 05:53 81 10/08/22 05:48 100 10/08/22 05:48 96 H 10/08/22 05:43 99 10/08/22 05:43 71 10/08/22 05:38 99 10/08/22 05:38 78 10/08/22 05:39 81 10/08/22 05:39 101/58 L 10/08/22 05:33 99 10/08/22 05:33 71 10/08/22 05:28 98 10/08/22 05:28 74 10/08/22 05:24 74 10/08/22 05:24 101/55 L 10/08/22 05:23 98 10/08/22 05:23 70 10/08/22 05:18 100 10/08/22 05:18 82 10/08/22 05:13 99 10/08/22 05:13 86 10/08/22 05:08 99 10/08/22 05:08 76 10/08/22 05:03 100 10/08/22 05:03 89 10/08/22 04:58 99 10/08/22 04:58 85 10/08/22 04:53 99 10/08/22 04:53 88 10/08/22 04:50 80 10/08/22 04:50 119/66 10/08/22 04:48 100 10/08/22 04:48 86 10/08/22 04:47 76 10/08/22 04:47 115/56 L 10/08/22 04:44 82 10/08/22 04:44 119/58 L 10/08/22 04:43 99 10/08/22 04:43 82 10/08/22 04:41 80 10/08/22 04:41 124/59 L 10/08/22 04:38 99 10/08/22 04:38 85 10/08/22 04:38 90 10/08/22 04:38 123/58 L 10/08/22 04:35 84 10/08/22 04:35 129/59 L 10/08/22 04:33 100 10/08/22 04:33 87 10/08/22 04:32 134/73 10/08/22 04:28 100 10/08/22 04:28 84 10/08/22 04:28 121/67 10/08/22 04:23 100 10/08/22 04:23 84 10/08/22 04:18 100 10/08/22 04:18 98 H 10/08/22 04:18 131/64 10/08/22 03:02 77 124/74 Coding Level of Care Code None Diagnoses with 39 completed weeks gestation Z3A.39 Polyhydramnios affecting O40.9XX0 Elderly multigravida O09.529
[2022-10-08] MEDS ORDERED: bisacodyL 10 MG SUPP PR PRN (11:45)
[2022-10-08] MEDS ORDERED: DIPHTHERIA/TETANUS/PERTUSSIS Vaccine (Tdap, Age 7+yrs) 0.5mL SYR/VL IM ONE (11:45)
[2022-10-08] MEDS ORDERED: HYDROCORTISONE ACETATE 25 MG SUPP PR PRN (11:45)
[2022-10-08] MEDS ORDERED: BENZOCAINE 20% AER SPR 82.5 GM CAN EXT PRN (11:45)
--- NOTE | 2022-10-08 12:34 | Delivery Summary ---
DATE OF SERVICE: 10/08/2022. PROCEDURE: Normal spontaneous vaginal delivery, second-degree perineal laceration repair. SURGEON: Win Gaona MD LAYOUT MECHANIC: Dr. Adriano Garibay, PGY-1 PREOPERATIVE DIAGNOSES: 1. Single intrauterine at 39 weeks 3 days gestational age. 2. Advanced maternal age. 3. Spontaneous labor. POSTOPERATIVE DIAGNOSES: 1. Single intrauterine at 39 weeks 3 days gestational age. 2. Advanced maternal age. 3. Spontaneous labor. 4. Status post procedure. ESTIMATED BLOOD LOSS: 300 mL. DRAINS: Straight cath at the completion of the case. URINE OUTPUT: Per straight cath. COMPLICATIONS: None. FINDINGS: Viable female with weight pending and Apgars of 8 and 9 at one and five minutes re spectively. DESCRIPTION OF PROCEDURE: The patient progressed to 10 cm dilated, positive 2 station, pushed over i ntact perineum with epidural anesthesia and delivered a viable female infant with weight and Apgars a s noted above. Head of the delivered in YECENIA position, restituted right transverse. No nucha l cord was noted. Body and shoulders quickly followed. was noted to be vigorous soon after delivery and 1 minute delayed cord clamping was initiated. Cord was then double clamped and cut. Ne celsa remained on maternal abdomen. Cord blood was obtained. Attention was then turned to delivery of the placenta, which was delivered intact, 3-vessel cord, gentle cord traction. On inspection of p erineum, vagina, cervix, there was noted to be a second-degree perineal laceration, which was repaire d with a traditional crown stitch using 3-0 Vicryl. Needle, sponge, and instrument counts were corre ct at completion of the case. Job ID: [id number]
--- NOTE | 2022-10-08 12:56 | Anesthesia Procedure Note ---
Date of Service October 08, 2022 Anesthesia Post Epidural Note Vital Signs Vital Signs: Temp Pulse Resp BP Pulse Ox 98.8 F 85 17 114/62 98 10/08/22 09:55 10/08/22 12:46 10/08/22 07:22 10/08/22 12:46 10/08/22 10:58 Pain Intensity Abdomen: Pain Intensity: 1 Notes Mental Status: alert / awake / arousable and participated in evaluation Nausea / Vomiting: adequately controlled Pain: adequately controlled Airway Patency, RR, SpO2: stable & adequate BP & HR: stable & adequate Hydration State: stable & adequate Neuraxial Anesthesia: was administered and sensory block is resolving Anesthetic Complications: no major complications apparent and Pt Satisfied with anesthetic care Epidural: Removed without complications and With tip intact
[2022-10-08] MEDS: IBUPROFEN 600 MG TAB PO PRN ×2 (14:51→19:31)
[2022-10-08] MEDS: DOCUSATE SODIUM 100 MG CAP PO SCH (19:31)
[2022-10-09] MEDS: IBUPROFEN 600 MG TAB PO PRN ×4 (00:36→16:12)
[2022-10-09] MEDS: ACETAMINOPHEN 325 MG TAB PO PRN ×2 (02:17→09:39)
[2022-10-09 06:40] LABS: Hematocrit (blood only) 29.6 % (37.0-47.0); Hemoglobin 10.1 g/dl (12.0-16.0); Mean Corpuscular Hemoglobin 31.6 pg (25.0-34.0); Mean Corpuscular Hgb Conc 34.1 g/dL (32.0-36.0); Mean Corpuscular Volume 92.5 fL (80.0-100.0); Mean Platelet Volume 10.6 fL (9.4-12.4); Platelet Count 121 K/uL (130-400); RDW Coefficient of Variation 14.1 % (11.5-14.5); White Blood Count 7.65 K/ul (4.8-10.8)
[2022-10-09] MEDS: DOCUSATE SODIUM 100 MG CAP PO SCH (07:21)
--- NOTE | 2022-10-09 07:56 | Obstetrical Progress Note ---
Date of Service <Adriano Garibay - Last Filed: 10/09/22 07:58> October 09, 2022 Assessment & Plan <Adriano Garibay - Last Filed: 10/09/22 07:58> (1) Vaginal delivery: Plan - Feels well today. Eating well, voiding well, ambulating well. - Pain well controlled with ibuprofen 600mg Q4H PRN - Routine care -- OOB, ambulation, diet progression as tolerated - After discharge will have 6 week follow-up with Dr. Gaona. Day #:: 1 <Win Gaona MD - Last Filed: 10/13/22 13:15> (1) Vaginal delivery: Subjective <Adriano Garibay - Last Filed: 10/09/22 07:58> Ambulation: ambulating normally Voiding: no voiding problems Passing Gas:: Yes Diet Tolerance:: regular diet Lochia:: Small Feeding Type:: breast feeding Current Pain Level(1-10): 3 Review of Systems Denies fever, chills, sweats Denies shortness of breath, difficulty breathing, chest pain, palpitations, chest pressure. Denies breast pain. Denies dysuria. Denies headache or changes in vision. Physical Exam <Adriano Garibay - Last Filed: 10/09/22 07:58> General: Alert, oriented. No acute distress. Cardiac: Regular rate and rhythm, no murmurs/rubs/gallops. Respiratory: Clear to auscultation bilaterally a/p, no wheezes/rales/rhonchi. No increased work of breathing. Symmetrical chest rise. No respiratory distress. Abdomen: Soft, nontender, nondistended. Bowel sounds present. Uterus: Uterine fundus firm, palpable 1 cm below umbilicus. Lower Extremities: No lower extremity edema or swelling. No deep calf pain. Morena's negative bilaterally. Results & Data <Adriano Garibay - Last Filed: 10/09/22 07:58> Vital Signs (Past 12 Hours) Vital Signs Temp Pulse Resp BP Pulse Ox O2 Del Method 10/09/22 03:30 36.6 C 65 18 100/63 98 Room Air 10/08/22 23:00 36.4 C L 65 20 105/67 98 Room Air <Win Gaona MD - Last Filed: 10/13/22 13:15> Co-Signing Physician Notes Patient seen with resident and agree with the above findings and plan. Stable for discharge Resident Activity Tracking <Adriano Garibay DO - Last Filed: 10/09/22 07:58> Resident Involvement: Resident Care Provided Care Provided: OB Delivery
[2022-10-09] MEDS ORDERED: PRENATAL VITAMIN 1 TAB PO SCH (08:00)
[2022-10-09] MEDS ORDERED: bisacodyL 5 MG TABEC PO SCH (20:00)
== END 2022-10-09 16:15 | disposition home or self-care (01) | DRG 806 ==
LOC: 4S1 02:53 → 4E2 14:06
DX: D68.52 Prothrombin gene mutation; O40.3XX0 Polyhydramnios, third trimester, not applicable or unspecified; Z3A.39 39 weeks gestation of pregnancy; Z37.0 Single live birth; O09.813 Supervision of pregnancy resulting from assisted reproductive technology, third trimester; O70.1 Second degree perineal laceration during delivery; O99.113 Other diseases of the blood and blood-forming organs and certain disorders involving the immune mechanism complicating pregnancy, third trimester